=== PATIENT | female | born 1975 | race Caucasian/White ===

== ENCOUNTER 2020-11-30 04:04 | Day surgery (SDC) | payer OTHER ==
[2020-11-24 13:10] VITALS: BMI 37.6
[2020-11-30] MEDS ORDERED: BUPIVACAINE HCL 50 ML ONE (07:35)
[2020-11-30] MEDS ORDERED: PROPOFOL 20 ML ONE ×2 (07:46)
[2020-11-30] MEDS ORDERED: ROCURONIUM BROMIDE 50 MG/5 ML SYRINGE ONE (07:46)
[2020-11-30] MEDS ORDERED: SUCCINYLCHOLINE CHLORIDE 200 MG/10 ML SYRINGE ONE (07:46)
[2020-11-30] MEDS ORDERED: MIDAZOLAM HCL 2 MG/2 ML SINGLE DOSE VIAL ONE (07:46)
[2020-11-30] MEDS ORDERED: ceFAZolin SODIUM 1 GM VIAL IVPB ONE (08:39)
[2020-11-30] MEDS ORDERED: ceFAZolin SODIUM 1 GM VIAL ONE (08:47)
[2020-11-30] MEDS ORDERED: DEXAMETHASONE SOD PHOSPHATE 4 MG/1 ML VIAL ONE (08:51)
[2020-11-30] MEDS ORDERED: HYDROmorphone HCl 2 MG/ML VIAL ONE (08:53)
[2020-11-30] MEDS ORDERED: GLYCOPYRROLATE 0.2 MG/1 ML VIAL ONE (09:19)
[2020-11-30] MEDS ORDERED: NEOSTIGMINE METHYLSULFATE 0.5 MG/ML - 10 ML MDV ONE (09:19)
[2020-11-30] MEDS ORDERED: BUPIVACAINE HCL/PF 0.5% (5MG/ML) 10 ML VIAL IJ ONE (09:23)
[2020-11-30] MEDS ORDERED: ONDANSETRON 4 MG/2 ML VIAL IVPUSH PRN (09:38)
[2020-11-30] MEDS ORDERED: oxyCODONE HCL 5 MG TABLET PO PRN (09:38)
[2020-11-30] MEDS ORDERED: LACTATED RINGERS SOLUTION 1,000 ML IV SCH (09:45)
[2020-11-30 11:22] VITALS: PULSE 64; TEMP 97.5
[2020-11-30 12:57] VITALS: BP 136/69
== END 2020-11-30 12:50 | disposition home or self-care (01) ==
LOC: JASU-SURG 04:04
PROVIDERS: ATTEND Obstetrics & Gynecology
PROC: 0UT74ZZ Resection of Bilateral Fallopian Tubes, Percutaneous Endoscopic Approach (ICD-10-PCS; principal; 2020-11-30 08:28)
DX: Z30.2 Encounter for sterilization (principal)
CPT/HCPCS: 36415; 81025; 84703; 86850; 86900; 86901; 88302-TC; 94760